=== PATIENT | male | born 1960 | race Caucasian/White ===

== ENCOUNTER 2022-09-28 21:11 | Inpatient (IN) | payer OTHER, MEDICAID ==
[~2022-09-28] VITALS: Ht 172.7 cm; Wt 157.4 kg
[2022-09-28 21:21] VITALS: BP 116/74
--- NOTE | 2022-09-28 21:21 | NUR ---
ROBYN BECERRA TO BED #8
--- NOTE | 2022-09-28 21:30 | NUR ---
61 Y/O M PRESENTS WITH GENERALIZED WEAKNESS 9/10, CHEST PAIN X TODAY, AND WOUND LL LEG. PT'S BILATERAL LEGS APPEAR SWOLLEN. PT STATES PAIN IS INTERMITTENT AND FEELS LIKE PRESSURE ALL OVER BODY. PT IS A&OX3, SLOW TO RESPOND WHEN ASKED QUESTIONS. PT STATED HE HAD SOME NV DENIES DIARRHEA AND HEADACHES INTERMITTENTLY. PT STATES HE FEELS HOT AND HE FEELS LIKE SOMEONE SPIKED HIS DRINK. PMH- COPD, CHF, DIABETES, HTN, P.E. NKA MEDS- LASIX, LISINOPRIL
--- NOTE | 2022-09-28 22:10 | NUR ---
Dr. Alejandro examining patient.
[2022-09-28 22:13] LABS: BASOPHILS % (AUTO) 0.3 % (0.0-2.0); EOSINOPHILS # (AUTO) 0.2 K/uL (0-0.4); EOSINOPHILS % (AUTO) 2.3 % (0.0-4.0); LYMPHOCYTES # (AUTO) 1.7 K/uL (2.0-11.5); LYMPHOCYTES % (AUTO) 17.7 % (20.5-51.1); MEAN CORPUSCULAR HEMOGLOBIN 28 pg (27-31); MEAN CORPUSCULAR HGB CONC 32 g/dL (33-37); MEAN CORPUSCULAR VOLUME 86.3 fL (80-94); MONOCYTES # (AUTO) 0.7 K/uL (0.8-1.0); NEUTROPHILS # (AUTO) 6.7 K/uL (1.8-7.7); NEUTROPHILS % (AUTO) 71.7 % (42.2-75.2); PLATELET COUNT (AUTO) 307 K/uL (140-450); RED BLOOD CELL COUNT(AUTO) 4.28 MIL/uL (4.20-6.10); RED CELL DISTRIBUTION WIDTH 14.7 % (11.6-13.7); WHITE BLOOD COUNT (AUTO) 9.3 K/uL (4.8-10.8)
[2022-09-28 22:55] LABS: ALBUMIN 2.8 g/dL (3.4-5.0); ANION GAP 9.8 (8-16); ASPARTATE AMINOTRANSFERASE 13 U/L (15-37); CARBON DIOXIDE 30.3 mmol/L (21-32); CHLORIDE 103 mmol/L (98-107); CREATININE 1.2 mg/dL (0.6-1.3); GFR ARICAN-AMERICAN 79 mL/min (>90); GLUCOSE 252 mg/dL (74-106); POTASSIUM 4.1 mmol/L (3.5-5.1); SODIUM SERUM 139 mmol/L (136-145); TOTAL BILIRUBIN 0.5 mg/dL (0.0-1.0); UREA NITROGEN, BLOOD 20 mg/dL (7-18)
[2022-09-29] MEDS ORDERED: IPRATROPIUM 0.02% 0.5 MG/2.5 ML NEBU INH ONE (00:45)
[2022-09-29] MEDS ORDERED: ALBUTEROL 0.083% 2.5 MG/3 ML NEBU INH ONE (00:45)
[2022-09-29] MEDS ORDERED: methylPREDNISolone SS 125 MG/2 ML VIAL IVP ONE (00:45)
--- NOTE | 2022-09-29 00:46 | NUR ---
RT AT BEDSIDE
[2022-09-29] MEDS ORDERED: LISI2.5T12 PO (01:44)
[2022-09-29] MEDS ORDERED: FURO-572 PO (01:44)
--- NOTE | 2022-09-29 01:50 | NUR ---
PT STATED "I AM FEELING BETTER." AND "I ASKED MY BROTHER YESTERDAY TO CALL 911 BECAUSE I WASNT FEELING WELL BUT HE DIDNT LISTEN TO ME."
--- NOTE | 2022-09-29 03:30 | NUR ---
PT RESTING IN ROOM, URINAL AT BEDSIDE. PT IS A&OX4. AWAITING ADMISSION.
[2022-09-29] MEDS ORDERED: methylPREDNISolone SS 125 MG/2 ML VIAL IVP SCH (05:00)
--- NOTE | 2022-09-29 06:34 | NUR ---
PT AWAITING ADMISSION, RESTING IN ROOM
--- NOTE | 2022-09-29 07:27 | NUR ---
Pt report given to DORA GALO. Transfer of care at this time.
--- NOTE | 2022-09-29 07:27 | NUR ---
Report and continuation of care received from DIANN Barrett.
--- NOTE | 2022-09-29 07:30 | NUR ---
Received patient resting in semi-fowlers position on front desk monitor. SpO2 95% on 2L via NC. Bed locked in lowest position, side rails x 1.
--- NOTE | 2022-09-29 08:35 | NUR ---
Patient will be admitted to care of Dr. Rice. Admited to Telemetry. Will go to room 125B. Belongings list completed. Report to DIANN Steele.
[2022-09-29 09:52] VITALS: BP 131/84
--- NOTE | 2022-09-29 10:02 | NUR ---
PATIENT HAS BEEN SCREENED AND CATEGORIZED MODERATE NUTRITION RISK. PATIENT WILL BE SEEN WITHIN 3-5 DAYS OF ADMISSION. REVIEWED BY LAVON MARTINEZ RD
[2022-09-29] MEDS ORDERED: DRY DRESSING TP PRN (10:10)
[2022-09-29] MEDS ORDERED: Z-GUARD PASTE TP PRN (10:10)
[2022-09-29] MEDS ORDERED: FUROSEMIDE 100 MG/10 ML VIAL IV ONE (10:25)
[2022-09-29] MEDS: FUROSEMIDE 40 MG/4 ML VIAL IVP SCH ×2 (10:34→23:00)
[2022-09-29 12:00] VITALS: BP 162/100
[2022-09-29] MEDS ORDERED: MAG SULF 2000 MG/WATER PREMIX 50 ML IV PRN (12:10)
[2022-09-29] MEDS: lisinopriL 5 MG TAB PO SCH (12:10)
[2022-09-29] MEDS ORDERED: ACETAMINOPHEN 325 MG TAB PO PRN (12:10)
[2022-09-29] MEDS: NACL 0.9% 1,000 ML IV SCH (12:10)
[2022-09-29] MEDS ORDERED: POTASSIUM CHLORIDE 10 MEQ TABER PO PRN (12:10)
[2022-09-29] MEDS ORDERED: HYDROcodone/APAP 7.5/325 MG 1 TAB PO PRN (12:10)
--- NOTE | 2022-09-29 13:07 | NUR ---
FNS CONSULT HAS BEEN RECEIVED ON 09/29/22 FOR WOUNDS/PRESSURE ULCERS. PATIENT HAS BEEN RE-SCREENED HIGH RISK AND WILL BE SEEN WITHIN 1-2 DAYS OF RECEIVING THE FNS CONSULT. 09/30/22-10/01/22
[2022-09-29] MEDS ORDERED: DEXTROSE 50% 50 ML SYR IVP PRN (13:40)
[2022-09-29 16:00] VITALS: BP 155/97
--- NOTE | 2022-09-29 17:00 | NUR ---
1700: RECEIVED PT FROM CINDY GALO. PT RESTING IN BED. DENIES ANY CP, SLIGHT SOB. NO ACUTE DISTRESS NOTED AT THIS TIME. [id number].
[2022-09-29] MEDS: INSULIN LISPRO SLIDING SCALE 100 UNITS/ML VIAL SUBQ PRN ×2 (17:52→21:52)
--- NOTE | 2022-09-29 19:59 | NUR ---
1700: PREVIOUS NOTE IN ERROR. NOT CORRECT PT. [id number].
[2022-09-29 20:00] VITALS: BP 130/77
--- NOTE | 2022-09-29 20:00 | NUR ---
1630:RECEIVED PT FROM DORA GALO. PT RESTING IN BED. NO C/O PAIN. DENIES SOB AT THI TIME. NO ACUTE DISTRESS NOTED. [id number].
--- NOTE | 2022-09-29 20:06 | NUR ---
1950: REPORT OFF TO MEIR GLAO. PT RESTING IN BED EYES CLOSED. NO GAURDING OR GRIMCING. NO ACUTE DSITRESS NOTED AT THIS TIME. [id number].
[2022-09-29 20:33] LABS: BASOPHILS # (AUTO) 0.1 K/uL (0.00-0.22); BASOPHILS % (AUTO) 0.3 % (0.0-2.0); HEMOGLOBIN 12.4 g/dL (12.0-18.0); LYMPHOCYTES # (AUTO) 0.9 K/uL (2.0-11.5); LYMPHOCYTES % (AUTO) 5.3 % (20.5-51.1); MEAN CORPUSCULAR HEMOGLOBIN 28 pg (27-31); MEAN CORPUSCULAR HGB CONC 33 g/dL (33-37); MEAN CORPUSCULAR VOLUME 85.2 fL (80-94); MONOCYTES # (AUTO) 0.7 K/uL (0.8-1.0); MONOCYTES % (AUTO) 4.3 % (1.7-9.3); NEUTROPHILS % (AUTO) 90.1 % (42.2-75.2); PLATELET COUNT (AUTO) 340 K/uL (140-450); RED BLOOD CELL COUNT(AUTO) 4.46 MIL/uL (4.20-6.10); RED CELL DISTRIBUTION WIDTH 14.5 % (11.6-13.7); WHITE BLOOD COUNT (AUTO) 16.7 K/uL (4.8-10.8)
[2022-09-29 20:44] LABS: ANION GAP 12.8 (8-16); CARBON DIOXIDE 28.4 mmol/L (21-32); POTASSIUM 4.2 mmol/L (3.5-5.1)
[2022-09-29 20:46] LABS: PROTHROMBIN TIME 10.5 secs (10.8-13.4)
[2022-09-29] MEDS: BLOOD GLUCOSE MONITORING 1 DEV DEV FS SCH ×2 (20:50→21:20)
[2022-09-29 21:00] LABS: CHOL/HDL RATIO 2.6 (1-4.5); FREE T4 (FREE THYROXINE) 0.98 ng/dL (0.76-1.46); MAGNESIUM 1.8 mg/dL (1.8-2.4); PHOSPHORUS 3.5 mg/dL (2.5-4.9); THYROID STIMULATING HORMONE 0.6 uIU/mL (0.34-3.74)
--- NOTE | 2022-09-29 21:00 | NUR ---
relayed lactic acid 2 .2 - no further orders made .
--- NOTE | 2022-09-29 21:00 | NUR ---
RELAYED TO DR. JOYCE THE LACTIC ACID 2.2 , CHARGE NURSE CARLYLE FREY .
--- NOTE | 2022-09-29 21:18 | NUR ---
REVIEWED PYXIS THERE IS ONLY 1 TRANSACTION FOR LASIX - MEANS THE 1700 LASIX NOT GIVEN BY AM SHIFT .
[2022-09-29] MEDS: methylPREDNISolone SS 40 MG/ML VIAL IVP SCH (21:40)
[2022-09-29] MEDS: DOCUSATE SODIUM 100 MG GELCAP PO SCH (23:00)
[2022-09-30] VITALS: BP 133/70
--- NOTE | 2022-09-30 | NUR ---
rounds , no s/ sx of acute distress noted . will cont. to tremaine , call light within reach
[2022-09-30 01:16] LABS: APPEARANCE,URINE CLEAR (CLEAR); BILIRUBIN,URINE NEGATIVE (NEGATIVE); BLOOD, URINE NEGATIVE (NEGATIVE); COLOR,URINE YELLOW (YELLOW); LEUKOCYTE ESTERASE ,URINE NEGATIVE (NEGATIVE); NITRITE, URINE NEGATIVE (NEGATIVE); UGLUCOSE 2+ (NEGATIVE)
[2022-09-30 01:31] LABS: BARBITURATE, URINE NEGATIVE ng/ml (NEG <=200); BENZODIAZEPINE, URINE NEGATIVE ng/mL (NEG <=200); CANNABINOID, URINE POSITIVE ng/mL (NEG <=50); COCAINE, URINE NEGATIVE ng/mL (NEG <=300); OPIATE, URINE NEGATIVE ng/mL (NEG <=2000); PHENCYCLIDINE SCREEN,URINE NEGATIVE ng/mL (NEG <=25)
[2022-09-30 04:00] VITALS: BP 135/82
--- NOTE | 2022-09-30 04:00 | NUR ---
rounds , o2 sat wnl . no s/sx of acute distress noted , call light within reach .
[2022-09-30] MEDS: methylPREDNISolone SS 40 MG/ML VIAL IVP SCH (05:22)
[2022-09-30 05:51] LABS: BASOPHILS % (AUTO) 0.1 % (0.0-2.0); HEMATOCRIT 37.3 % (36-52); HEMOGLOBIN 12.1 g/dL (12.0-18.0); LYMPHOCYTES # (AUTO) 0.7 K/uL (2.0-11.5); LYMPHOCYTES % (AUTO) 4.6 % (20.5-51.1); MEAN CORPUSCULAR HEMOGLOBIN 28 pg (27-31); MEAN CORPUSCULAR HGB CONC 32 g/dL (33-37); MEAN CORPUSCULAR VOLUME 85.8 fL (80-94); MONOCYTES # (AUTO) 0.5 K/uL (0.8-1.0); MONOCYTES % (AUTO) 3.4 % (1.7-9.3); NEUTROPHILS # (AUTO) 14.8 K/uL (1.8-7.7); NEUTROPHILS % (AUTO) 91.9 % (42.2-75.2); PLATELET COUNT (AUTO) 351 K/uL (140-450); RED BLOOD CELL COUNT(AUTO) 4.35 MIL/uL (4.20-6.10); RED CELL DISTRIBUTION WIDTH 14.3 % (11.6-13.7); WHITE BLOOD COUNT (AUTO) 16.1 K/uL (4.8-10.8)
--- NOTE | 2022-09-30 06:00 | NUR ---
o2 sat wnl , no s/sx of caute distress noted . call light / urinal within reach .
[2022-09-30 06:19] LABS: ANION GAP 13.5 (8-16); CARBON DIOXIDE 25.8 mmol/L (21-32); POTASSIUM 4.3 mmol/L (3.5-5.1)
[2022-09-30 06:26] LABS: MAGNESIUM 1.9 mg/dL (1.8-2.4); PHOSPHORUS 3.3 mg/dL (2.5-4.9)
[2022-09-30] MEDS: BLOOD GLUCOSE MONITORING 1 DEV DEV FS SCH ×4 (06:59→20:47)
[2022-09-30] MEDS: INSULIN LISPRO SLIDING SCALE 100 UNITS/ML VIAL SUBQ PRN ×4 (06:59→20:53)
--- NOTE | 2022-09-30 07:37 | NUR ---
informed pharmacist the am nurse missed the 5pm dose of lasix tiv , so i gave it at 2300 . the pharmacist s replied " ok " - endorsed to am nurse ivory . Addendum: 09/30/22 at 0742 by Sada Nogueira RN at 0737 - endorsed pt for cont. of care ,awake .
[2022-09-30 08:00] VITALS: BP 155/68
[2022-09-30] MEDS: NACL 0.9% 1,000 ML IV SCH (08:10)
[2022-09-30] MEDS ORDERED: FUROSEMIDE 20 MG TAB PO SCH (09:00)
[2022-09-30] MEDS: PANTOPRAZOLE 40 MG INJ VIAL IVP SCH (09:47)
[2022-09-30] MEDS: FUROSEMIDE 40 MG/4 ML VIAL IVP SCH ×2 (09:50→17:09)
[2022-09-30] MEDS: DOCUSATE SODIUM 100 MG GELCAP PO SCH ×2 (09:52→20:57)
[2022-09-30] MEDS: lisinopriL 5 MG TAB PO SCH (09:52)
[2022-09-30 12:00] VITALS: BP 145/101
--- NOTE | 2022-09-30 12:00 | NUR ---
DC PLANNING ASSESSMENT COMPLETE PLEASE REFER TO ASSESSMENT FOR ADDITIONAL DETAILS PT REPORTS TENTATIVE DC PLAN IS TO RETURN HOME WITH HIS BROTHER PROVIDING TRANSPORTATION,HOWEVER, PT REPORTS HE MAY REQUIRE RIDE SHARE SERVICE HIS BROTHER MAY STILL BE OUT ON VACATION. NOTIIED PT TO NOTIFY NURSE IF RIDE SHARE SERVICE NEEDED TO BE ARRANGED, PT VERBALIZED UNDERSTANDING. Addendum: 10/01/22 at 0856 by Gillian MANCINI Amended: Links added.
--- NOTE | 2022-09-30 14:00 | NUR ---
WOUND CARE NOTE: WOUND ASSESSMENT DONE WITH THIS 61 Y/O PT. AAX4. PT ADMITTED WITH CHRONIC STASIS ULCER TO BLE . LLE MULTIPLE SKIN TEARS WITH LARGEST TO CALF 3X2X0.1CM, WOUND BED MOIST, PINK, NO ODOR, KILO-WOUND SKIN HEALED SCAR TISSUE. RLE MULTIPLE SCABS , NO WEEPING SKIN. POC DISCUSSED WITH PT. PT. VERBALIZES UNDERSTANDING. POC DISCUSSED WITH PRIMARY RN NICOLE. RECOMMENDATIONS: -ELEVATED BILATERAL LE AND FEET WITH PILLOWS, OFFLOADING HEELS -CLEANSE LLE WOUNDS WITH NS, PAT DRY, APPLY ALGINATE DRESSING, COVER WITH DRY DRESSING 3X/WEEK ON AND PRN IF SOILING.
[2022-09-30] MEDS ORDERED: ALGINATE ROPE MC PRN (14:10)
--- NOTE | 2022-09-30 15:25 | NUR ---
09/30/22 RD INITIAL ASSESSMENT COMPLETED PLEASE REFER TO NUTRITION ASSESSMENT UNDER CARE ACTIVITY FOR ESTIMATED NUTRITIONAL NEEDS. 1. CONTINUE [id number] DIET TOLERATED 2. RECOMMEND PROSOURCE 1/DAY TO PROMOTE WOUND HEALING -PROVIDES 60 KCAL AND [address] TO FOLLOW-UP 7 DAYS, LOW RISK REVIEWED BY LAVON MARTINEZ RD
[2022-09-30 16:00] VITALS: BP 141/83
--- NOTE | 2022-09-30 19:44 | NUR ---
ENDORSE PATIENT IN STABLE CONDITION TO PM SHIFT NURSE WITH PIV L. HAND SALINE LOCK. PATIENT ON LASIX AND CONTINUE URINATION A LOT.
[2022-09-30 20:00] VITALS: BP 130/75
[2022-10-01] VITALS: BP 133/72
[2022-10-01 04:00] VITALS: BP 130/90
[2022-10-01 05:53] LABS: BASOPHILS % (AUTO) 0.1 % (0.0-2.0); EOSINOPHILS # (AUTO) 0.1 K/uL (0-0.4); EOSINOPHILS % (AUTO) 0.4 % (0.0-4.0); LYMPHOCYTES # (AUTO) 3.2 K/uL (2.0-11.5); LYMPHOCYTES % (AUTO) 22.4 % (20.5-51.1); MEAN CORPUSCULAR HEMOGLOBIN 28 pg (27-31); MEAN CORPUSCULAR HGB CONC 33 g/dL (33-37); MEAN CORPUSCULAR VOLUME 85.2 fL (80-94); MONOCYTES # (AUTO) 0.9 K/uL (0.8-1.0); MONOCYTES % (AUTO) 6.5 % (1.7-9.3); NEUTROPHILS # (AUTO) 10.1 K/uL (1.8-7.7); NEUTROPHILS % (AUTO) 70.6 % (42.2-75.2); PLATELET COUNT (AUTO) 353 K/uL (140-450); RED CELL DISTRIBUTION WIDTH 14.7 % (11.6-13.7); WHITE BLOOD COUNT (AUTO) 14.3 K/uL (4.8-10.8)
[2022-10-01 06:13] LABS: ANION GAP 11.1 (8-16); CARBON DIOXIDE 29.5 mmol/L (21-32); POTASSIUM 3.6 mmol/L (3.5-5.1)
[2022-10-01 06:22] LABS: MAGNESIUM 1.8 mg/dL (1.8-2.4); PHOSPHORUS 3.4 mg/dL (2.5-4.9)
[2022-10-01] MEDS: INSULIN LISPRO SLIDING SCALE 100 UNITS/ML VIAL SUBQ PRN ×4 (07:07→21:55)
--- NOTE | 2022-10-01 07:15 | NUR ---
RECEIVED REPORT FROM SECTION LABORER NURSE FOR CONTINUITY OF CARE. PT STABLE T THIS TIME.
[2022-10-01] MEDS: BLOOD GLUCOSE MONITORING 1 DEV DEV FS SCH ×4 (07:17→21:52)
[2022-10-01] MEDS: lisinopriL 5 MG TAB PO SCH (08:54)
[2022-10-01] MEDS: PANTOPRAZOLE 40 MG INJ VIAL IVP SCH (08:55)
[2022-10-01] MEDS: FUROSEMIDE 40 MG/4 ML VIAL IVP SCH ×2 (08:55→17:54)
[2022-10-01] MEDS: DOCUSATE SODIUM 100 MG GELCAP PO SCH ×2 (09:00→21:52)
[2022-10-01] MEDS ORDERED: ALBUTEROL SULFATE/IPRATROPIU 3 ML SOL IH PRN (09:20)
[2022-10-01 09:44] VITALS: BP 131/84
[2022-10-01 12:00] VITALS: BP 149/98
[2022-10-01] MEDS: ALBUTEROL SULFATE/IPRATROPIU 3 ML SOL IH SCH ×2 (13:00→20:16)
[2022-10-01 16:00] VITALS: BP 128/87
--- NOTE | 2022-10-01 19:33 | NUR ---
ENDORSED PTS TO GARDENING SUPERVISOR NURSE FOR CONTINUITY OF CARE. PT STABLE AT THIS TIME.
--- NOTE | 2022-10-01 19:35 | NUR ---
RECEIVED SHIFT REPORT FOR CONTINUITY OF CARE FROM MIKAELA GALO, PATIENT WAS IN BED RESTING. RESPOND WHEN NAME WAS CALLED. PATIENT COMPLAINED OF BEING COLD AND COVERS WERE PLACED ON THE PATIENT. PATIENT WAS REPOSITIONED IN THE BED TO PROMOTE BREATHING AND COMFORT. NO COMPLAINTS OF PAIN/DISCOMFORT. NO S/S OF RESPIRATORY DISTRESS. HEAD OF BED ELEVATED. KEPT CLEAN AND DRY. SIDE RAILS UP X 2 AND CALL LIGHT IN REACH. [id number]
[2022-10-01 20:00] VITALS: BP 117/78
[2022-10-01] MEDS: ONDANSETRON 4 MG/2 ML VIAL IVP PRN (21:40)
[2022-10-02] VITALS: BP 99/55
[2022-10-02 04:00] VITALS: BP 105/57
[2022-10-02 05:53] LABS: BASOPHILS % (AUTO) 0.1 % (0.0-2.0); EOSINOPHILS % (AUTO) 0.1 % (0.0-4.0); HEMATOCRIT 41.1 % (36-52); HEMOGLOBIN 13.5 g/dL (12.0-18.0); LYMPHOCYTES # (AUTO) 1.4 K/uL (2.0-11.5); LYMPHOCYTES % (AUTO) 7.1 % (20.5-51.1); MEAN CORPUSCULAR HEMOGLOBIN 28 pg (27-31); MEAN CORPUSCULAR HGB CONC 33 g/dL (33-37); MEAN CORPUSCULAR VOLUME 84.8 fL (80-94); MONOCYTES # (AUTO) 0.7 K/uL (0.8-1.0); MONOCYTES % (AUTO) 3.7 % (1.7-9.3); NEUTROPHILS # (AUTO) 17.2 K/uL (1.8-7.7); PLATELET COUNT (AUTO) 312 K/uL (140-450); RED BLOOD CELL COUNT(AUTO) 4.84 MIL/uL (4.20-6.10); RED CELL DISTRIBUTION WIDTH 14.8 % (11.6-13.7); WHITE BLOOD COUNT (AUTO) 19.3 K/uL (4.8-10.8)
[2022-10-02 06:07] LABS: ANION GAP 11.7 (8-16); CARBON DIOXIDE 29.8 mmol/L (21-32); CREATININE 1.2 mg/dL (0.6-1.3); POTASSIUM 3.5 mmol/L (3.5-5.1)
[2022-10-02 06:17] LABS: MAGNESIUM 1.5 mg/dL (1.8-2.4); PHOSPHORUS 4.3 mg/dL (2.5-4.9)
[2022-10-02] MEDS: BLOOD GLUCOSE MONITORING 1 DEV DEV FS SCH ×2 (06:36→11:44)
[2022-10-02] MEDS: INSULIN LISPRO SLIDING SCALE 100 UNITS/ML VIAL SUBQ PRN ×2 (06:36→11:49)
[2022-10-02] MEDS: ALBUTEROL SULFATE/IPRATROPIU 3 ML SOL IH SCH (07:00)
--- NOTE | 2022-10-02 07:05 | NUR ---
RECEIVED REPORT FROM COMMUTER PILOT NURSE FOR CONTINUITY OF CARE. PT STABLE T THIS TIME.
--- NOTE | 2022-10-02 07:22 | NUR ---
ENDORSE PATIENT CARE TO MIKAELA RN FOR CONTINUITY OF CARE, PATIENT WAS STABLE AT CHANGE OF SHIFT. [email or web address]
[2022-10-02 08:00] VITALS: BP 111/61
[2022-10-02] MEDS ORDERED: FOAM DRESSING TP SCH (09:00)
[2022-10-02] MEDS: DOCUSATE SODIUM 100 MG GELCAP PO SCH (09:00)
[2022-10-02] MEDS ORDERED: RIVA20TA PO (09:11)
[2022-10-02] MEDS ORDERED: LISI-486 PO (09:11)
[2022-10-02] MEDS ORDERED: FURO-572 PO (09:11)
[2022-10-02] MEDS: PANTOPRAZOLE 40 MG INJ VIAL IVP SCH (09:13)
[2022-10-02] MEDS: lisinopriL 5 MG TAB PO SCH (09:13)
[2022-10-02] MEDS: FUROSEMIDE 40 MG/4 ML VIAL IVP SCH (09:14)
[2022-10-02] MEDS: ONDANSETRON 4 MG/2 ML VIAL IVP PRN (11:54)
[2022-10-02 12:00] VITALS: BP 106/66
[2022-10-02 12:57] VITALS: BP 111/61
[2022-10-02] MEDS ORDERED: ALGINATE ROPE MC SCH (13:00)
== END 2022-10-02 16:50 | disposition home or self-care (01) | DRG 291 ==
LOC: MED 21:11 → MTU 09-29 01:58 → MMU 09-29 06:49 → MTU 10-02 05:45
DX: I11.0 Hypertensive heart disease with heart failure (principal); I50.43 Acute on chronic combined systolic (congestive) and diastolic (congestive) heart failure; J96.01 Acute respiratory failure with hypoxia; J44.1 Chronic obstructive pulmonary disease with (acute) exacerbation; Z68.43 Body mass index [BMI] 50.0-59.9, adult; E44.0 Moderate protein-calorie malnutrition; E66.9 Obesity, unspecified; F15.90 Other stimulant use, unspecified, uncomplicated; F12.90 Cannabis use, unspecified, uncomplicated; Z20.822 Contact with and (suspected) exposure to COVID-19; Z86.711 Personal history of pulmonary embolism; Z79.01 Long term (current) use of anticoagulants; Z91.14 Patient's other noncompliance with medication regimen
CPT/HCPCS: 36415; 71045; 80048; 80053; 80305; 81003; 82150; 82948; 83036; 83605; 83690; 83735; 83880; 84100; 84439; 84443; 84484; 85025; 85610; 85730; 87081; 93005; 93925; 93970; 94640; 96374; 96376; 99285; C9113; J1644; J1940; J2405; J2920; J2930; J3475; J7613; J7644; Q0092